=== PATIENT | female | born 1965 | race Caucasian/White ===

== ENCOUNTER 2019-03-15 22:46 | Emergency (ER) | payer SELFPAY ==
[~2019-03-15] VITALS: Ht 149.9 cm; Wt 58.9 kg
[2019-03-15 22:49] VITALS: Ht 149.9 cm; Wt 58.9 kg
[2019-03-15] MEDS ORDERED: morphine 4 MG/ML VIAL IV STA (22:56)
[2019-03-15] MEDS ORDERED: SOD CHLORIDE 0.9% 1,000 ML IV STA (22:56)
[2019-03-15] MEDS ORDERED: ONDANSETRON 4 MG INJ IV STA (22:56)
[2019-03-16] MEDS ORDERED: ONDA4TAB14 PO (01:29)
[2019-03-16] MEDS ORDERED: TRAM50TA2 PO (01:29)
[2019-03-16] MEDS ORDERED: traMADol 50 MG TAB PO ONE (01:30)
--- NOTE | 2019-03-16 01:37 | ERD ---
ER Documentation Chief Complaint Chief Complaint ABD-FLANK PAIN REFFERED BY FOR R/O CHOLETHIASIS HPI This is a very pleasant 54-year female comes in with right upper quadrant abdominal pain rating to her back for the past 2 days. She was seen in urgent care referred to the ER to rule out Janie cystitis. She denies any fevers or chills. No nausea vomiting. Pain is mild to moderate intensity. Is worse after she eats. No other current issues. ROS All systems reviewed and are negative except as per history of present illness. Medications Home Meds Active Scripts Ondansetron (Ondansetron Odt) 4 Mg Tab.rapdis, 4 MG PO Q6H PRN for NAUSEA AND/OR VOMITING, #10 TAB Prov:VIKTOR WARE 03/16/19 Tramadol HCl (Tramadol HCl) 50 Mg Tablet, 50 MG PO Q4 PRN for PAIN, #20 TAB Prov:VIKTOR WARE. 03/16/19 Allergies Allergies: Coded Allergies: No Known Allergy (Unverified , 03/15/19) PMhx/Soc Medical and Surgical Hx: pt denies Surgical Hx Hx Cardiac Disorders: Yes (htn) Hx Alcohol Use: No Hx Substance Use: No Hx Tobacco Use: No Smoking Status: Never smoker Physical Exam Vitals Vital Signs Date Temp Pulse Resp B/P (MAP) Pulse Ox O2 O2 Flow FiO2 Time Delivery Rate 03/16/19 67 14 172/72 99 Room Air 00:42 (105) 03/15/19 98.2 66 19 189/79 97 22:49 (115) Physical Exam Const: No acute distress Head: Atraumatic Eyes: Normal Conjunctiva ENT: Normal External Ears, Nose and Mouth. Neck: Full range of motion. No meningismus. Resp: Clear to auscultation bilaterally Cardio: Regular rate and rhythm, no murmurs Abd: Soft, non tender, non distended. Normal bowel sounds Skin: No petechiae or rashes Back: No midline or flank tenderness Ext: No cyanosis, or edema Neur: Awake and alert Psych: Normal Mood and Affect Result Diagram: 03/15/195 03/15/19 230 Results 24 hrs Laboratory Tests Test 03/15/19 22:53 03/15/19 23:07 Urine Color MONTY Urine Clarity CLOUDY Urine pH 5.0 Urine Specific [place] 1.028 Urine Ketones NEGATIVE mg/dL Urine Nitrite NEGATIVE mg/dL Urine Bilirubin NEGATIVE mg/dL Urine Urobilinogen NEGATIVE mg/dL Urine Leukocyte Esterase NEGATIVE Julia/ul Urine Microscopic RBC 1 /HPF Urine Microscopic WBC 3 /HPF Urine Squamous Epithelial Cells FEW /HPF Urine Bacteria FEW /HPF Urine Mucus FEW /HPF Urine Hemoglobin NEGATIVE mg/dL Urine Glucose NEGATIVE mg/dL Urine Total Protein NEGATIVE mg/dl White Blood Count 10.2 10^3/ul Red Blood Count 4.63 10^6/ul Hemoglobin 13.4 g/dl Hematocrit 41.3 % Mean Corpuscular Volume 89.2 fl Mean Corpuscular Hemoglobin 28.9 pg Mean Corpuscular Hemoglobin Concent 32.4 g/dl Red Cell Distribution Width 12.9 % Platelet Count 267 10^3/UL Mean Platelet Volume 10.6 fl Immature Granulocytes % 0.300 % Neutrophils % 75.7 % Lymphocytes % 14.0 % Monocytes % 6.5 % Eosinophils % 3.1 % Basophils % 0.4 % Nucleated Red Blood Cells % 0.0 /100WBC Immature Granulocytes # 0.030 10^3/ul Neutrophils # 7.7 10^3/ul Lymphocytes # 1.4 10^3/ul Monocytes # 0.7 10^3/ul Eosinophils # 0.3 10^3/ul Basophils # 0.0 10^3/ul Nucleated Red Blood Cells # 0.0 10^3/ul Sodium Level 142 mmol/L Potassium Level 4.1 mmol/L Chloride Level 104 mmol/L Carbon Dioxide Level 27 mmol/L Anion Gap 11 Blood Urea Nitrogen 19 mg/dl Creatinine 0.56 mg/dl Est Glomerular Filtrat Rate mL/min > 60 mL/min Glucose Level 155 mg/dl Calcium Level 10.2 mg/dl Total Bilirubin 0.4 mg/dl Direct Bilirubin 0.00 mg/dl Indirect Bilirubin 0.4 mg/dl Aspartate Amino Transf (AST/SGOT) 49 IU/L Alanine Aminotransferase (ALT/SGPT) 66 IU/L Alkaline Phosphatase 152 IU/L Total Protein 8.8 g/dl Albumin 4.7 g/dl Globulin 4.10 g/dl Albumin/Globulin Ratio 1.14 Lipase 99 U/L Current Medications Medications Dose Sig/Zaki Start Time Status Last (Trade) Ordered Route PRN Stop Time Admin Dose Reason Admin Sodium 1,000 ml @ Q1H STAT 03/15/19 DC 03/15/19 Chloride 1,000 mls/hr IV 22:56 23:09 03/15/19 23:55 Morphine 4 mg ONCE STAT 03/15/19 DC Sulfate IV 22:56 (morphine) 03/15/19 22:58 Ondansetron 4 mg ONCE STAT 03/15/19 DC HCl (Zofran IV 22:56 Inj) 03/15/19 22:58 Tramadol 50 mg ONCE ONCE 03/16/19 UNV HCl PO 01:30 (Ultram) 03/16/19 01:31 Procedures/MDM Medical decision making: Patient's gastrointestinal symptoms have stabilized while in the department. No evidence of severe dehydration, sepsis, or surgical abdomen. Extensive discussion with family and patient that occult disease cannot be ruled out. 8 hour recheck for repeat abdominal exam is planned. Departure Diagnosis: Primary Impression: Abdominal pain Abdominal location: right upper quadrant Qualified Codes: R10.11 - Right upper quadrant pain Condition: Stable Patient Instructions: Gallstones VIKTOR WARE Mar 16, 2019 01:37
[2019-03-16 02:08] VITALS: BP 142/79; PULSE 70; RESP 14
== END 2019-03-16 02:08 | disposition home or self-care (01) ==
LOC: E/R 22:46
DX: R10.11 Right upper quadrant pain (principal); I10 Essential (primary) hypertension
CPT/HCPCS: 76705; 80053; 81001; 83690; 85025; 87086; J7030; 36415; J2270; J2405